=== PATIENT | female | born 1965 | race Asian ===

== ENCOUNTER 2019-05-01 00:17 | Emergency (ER) | payer OTHER ==
[2019-05-01 00:32] VITALS: BP 147/83
== END 2019-05-01 02:33 | disposition left against medical advice (07) ==
LOC: ED 00:17
DX: Z53.21 Procedure and treatment not carried out due to patient leaving prior to being seen by health care provider (principal)

== ENCOUNTER 2019-05-03 00:14 | Emergency (ER) | payer OTHER ==
--- NOTE | 2019-05-03 01:04 | ED Physician Documentation ---
PD HPI LOWER EXT INJURY - Stated complaint Stated Complaint: L ANKLE PX - Chief complaint Chief Complaint: Ext Problem - History obtained from History obtained from: Patient - History of Present Illness PD HPI LOW EXT INJURY LOCATION: Left, Ankle Where injury occurred: Work Timing - onset: How many months ago (8) Timing - duration: Months (8) Timing - details: Still present Worsened by: Other (Weight bearing.) Associated symptoms: Swelling Recently seen: Clinic (W) - Additional information Additional information: The patient is a 54-year-old female who presents with pain and swelling of her left ankle. She has a history of left ankle sprain that occurred 8 months ago. X-rays at that time, and again as recently as 2 weeks ago, were negative for fracture. She continues to have pain and swelling of her ankle 8 months after the injury. Her employer at [facility] [employer] advised her to come to the emergency department to file an L&I claim. Her pain is worse with weightbearing. She denies any recurrent injury after the ankle sprain 8 months ago. 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 She has been using compression stockings and compression wrap. Review of Systems Constitutional: denies: Fever Respiratory: denies: Dyspnea, Cough Skin: denies: Rash Musculoskeletal: reports: Joint pain (Left ankle.), Joint swelling (Left ankle.) Neurologic: denies: Focal weakness, Numbness PD PAST MEDICAL HISTORY - Past Medical History Past Medical History: Yes Respiratory: Asthma Endocrine/Autoimmune: HyPOthyroidism - Past Surgical History Past Surgical History: Yes /[employer]: section, Dilation and currettage - Present Medications Home Medications: Ambulatory Orders Medication Instructions Recorded Confirmed Albuterol [Ventolin Hfa] 2 puffs INH Q4H PRN 01/07/14 05/03/19 Levothyroxine [Synthroid] 50 mcg ORAL DAILY 06/04/16 05/03/19 - Allergies Allergies/Adverse Reactions: Allergies Allergy/AdvReac Type Severity Reaction Status Date / Time gabapentin Allergy Intermediate Emesis Verified 05/03/19 00:20 ethinyl estradiol AdvReac Severe Headache Verified 05/03/19 00:20 [From Ortho Evra] norelgestromin AdvReac Severe Headache Verified 05/03/19 00:20 [From Ortho Evra] neomycin [Neomycin] AdvReac Intermediate skin Verified 05/03/19 00:20 redness - Social History Does the pt smoke?: No Smoking Status: Never smoker Does the pt drink ETOH?: No Does the pt have substance abuse?: No - Immunizations Immunizations are current?: Yes - POLST Patient has POLST: No PD ED PE NORMAL - Vitals Vital signs reviewed: Yes (Borderline hypertension initially.) - General General: Alert and oriented X 3, Well developed/nourished - HEENT HEENT: Atraumatic - Respiratory Respiratory: No respiratory distress - Derm Derm: No rash - Extremities Extremities: No calf tenderness / cord, Other (There is soft tissue swelling at both the medial and lateral aspect of the left ankle, with associated tenderness to palpation more medially than left early. There is decreased range of motion. There is no warmth or erythema. Distal neurovascular is intact.) - Neuro Neuro: Alert and oriented X 3, No motor deficit, No sensory deficit Results - Vitals Vitals: Vital Signs - 24 hr 05/03/19 05/03/19 00:15 01:15 Temperature 36.4 C L Heart Rate 70 74 Respiratory 15 16 Rate Blood Pressure 137/92 H 136/74 H O2 Saturation 98 99 Oxygen O2 Source Room air PD MEDICAL DECISION MAKING - ED course Complexity details: considered differential, d/w patient, other (L&I form was completed.) ED course: The patient's presentation is most consistent with persistent pain and swelling of her left ankle 8 months after an ankle sprain. X-rays of the ankle as recently as 2 weeks ago revealed no evidence of osseous abnormality. I do not think repeating the x-rays at this time would be of clinical benefit. There is no evidence to suggest a septic joint. I discussed with the patient symptomatic care, outpatient follow-up, as well as potentially worrisome signs or symptoms that should prompt reevaluation in the emergency department. An L&I form was completed. Departure - Departure Disposition: 01 Home, Self Care Clinical Impression: Pain and swelling of left ankle Left ankle sprain Qualifiers: Encounter type: sequela Involved ligament of ankle: unspecified ligament Qualified Code(s): S93.402S - Sprain of unspecified ligament of left ankle, sequela Condition: Stable Instructions: ED Sprain Ankle Follow-Up: BRANDYN CABRAL [Primary Care Provider] - [facility] [Provider Group] Comments: Keep your left leg elevated as much of the time as possible. You can use Tylenol or ibuprofen as needed for discomfort. Follow-up with your primary physician or with orthopedics within 2 weeks. Call to schedule an appointment. Return to the emergency department if you develop increasing swelling, pain, or otherwise worsening symptoms. Discharge Date/Time: 05/03/19 01:15
[2019-05-03 01:16] VITALS: BP 136/74
== END 2019-05-03 01:15 | disposition home or self-care (01) ==
LOC: ED 00:14
DX: S93.402A Sprain of unspecified ligament of left ankle, initial encounter (principal); X50.1XXA Overexertion from prolonged static or awkward postures, initial encounter; Y93.F9 Activity, other caregiving; Y92.239 Unspecified place in hospital as the place of occurrence of the external cause; Y99.0 Civilian activity done for income or pay
CPT/HCPCS: 99282; 99283

== ENCOUNTER 2020-05-30 12:43 | Outpatient (CLI) | payer OTHER ==
--- NOTE | 2020-05-30 17:31 | MRI Report ---
PROCEDURE: Ankle LT W/O INDICATIONS: LOCALIZED EDEMA TECHNIQUE: Noncontrast Magnetic Resonance Imaging (MRI) of the ankle/hindfoot was performed utilizing the follow ing sequences on a 3.0 Patience Siemens MRI: sagittal T1 spin echo, sagittal STIR, axial PD fast spin ec ho, axial T2 fast spin echo with fat saturation, coronal T2 spin echo with fat saturation, and PD fas t spin echo with fat saturation. COMPARISON: 8: Radiographs dated 04/20/2019 and 09/01/2018. FINDINGS: Image quality: Diagnostic. Bones and joints: No acute fracture, dislocation, or suspicious osseous lesion of the midfoot or hindfoot bones is pres ent. Osteoarthritic changes are noted in tibiotalar joint, subtalar joint, talonavicular joint and ca lcaneocuboid joints. Small to moderate amount of tibiotalar joint and subtalar joint effusion is seen extending to posterior recess of subtalar joint. Mild edema involving the lateral periphery of media l malleolus adjacent to medial portion of talus is seen suggestive of contusion. Subcortical cyst for mation involving medial portion of lateral malleolus is also seen. The ankle mortise is well-maintain ed. No osteochondral defects are evident involving the tibial plafond toward the talar dome. No signi ficant degenerative changes of the midfoot or hindfoot joints are present. Medial structures: There is medial ankle soft tissue swelling. Mildly thickened deep and superficial portions of deltoid ligament is seen suggestive of ligament sprain/low-grade partial thickness tear. Sprain ligament com plex is grossly intact. The posterior tibialis, flexor digitorum longus, and flexor hallucis longus tendons are intact. Small to moderate amount of fluid is seen distending the flexor tendon sheaths suggestive of low-grade ten osynovitis. The posterior tibial neurovascular bundle appears normal within the tarsal tunnel, withou t extrinsic mass effect. Lateral structures: The anterior and posterior distal tibiofibular ligaments are also intact. The anterior talofibular li gament, posterior talofibular ligament, and calcaneofibular ligament are intact. The peroneus longus and peroneus brevis tendons are intact and otherwise unremarkable. The sinus tarsi demonstrates normal fatty signal. Anterior structures: The tibialis anterior, extensor hallucis longus, and extensor digitorum longus tendons appear intact. Posterior and plantar structures: The Achilles tendon is intact. The medial and lateral bands of the plantar fascia are within normal l imits. IMPRESSION: 1. Osteoarthritic changes in ankle and hindfoot joints. Small amount of joint effusion. Soft tissue s welling over medial malleolus. No acute fracture or dislocation. Suggestion of mild bony contusion in volving medial and lateral malleoli as above. 2. Low-grade tenosynovitis involving flexor tendons. No evidence of tendon rupture. Extensor and maryann neus tendons are intact. Achilles tendon is intact. 3. Sprain/low-grade partial thickness tear involving deltoid ligament. Sprain ligament complex is int act. Lateral ankle ligaments are grossly intact. Reviewed by: Dean Gaitan MD on 05/30/2020 5:30 PM PDT Approved by: Dean Gaitan MD on 05/30/2020 5:30 PM PDT Station ID: [id number]
== END 2020-05-30 12:44 | disposition home or self-care (01) ==
LOC: DI 12:43
PROVIDERS: ATTEND Family Medicine
DX: S93.422A Sprain of deltoid ligament of left ankle, initial encounter (principal); M65.9 Synovitis and tenosynovitis, unspecified; M19.072 Primary osteoarthritis, left ankle and foot; M79.89 Other specified soft tissue disorders

== ENCOUNTER 2021-03-20 08:50 | Outpatient (CLI) | payer OTHER ==
--- NOTE | 2021-03-21 12:16 | Mammography Report ---
BILATERAL DIGITAL SCREENING MAMMOGRAM 3D/2D: 03/20/2021 CLINICAL: Routine screening. Comparison is made to exams dated: 09/01/2018 mammogram, 06/23/2017 mammogram, 10/11/2015 mammogram, a nd 08/15/2014 mammogram - [facility]. There are scattered fibroglandular elements in b oth breasts. No significant masses, calcifications, or other findings are seen in either breast. There has been no significant interval change. IMPRESSION: NEGATIVE There is no mammographic evidence of malignancy. A 1 year screening mammogram is recommended. This exam was interpreted at Station ID: [id number]. NOTE: For mammograms, a report in lay terms will be sent to the patient. Approximately 15% of breast malignancies will not be visualized mammographically. In the management of a palpable breast mass, a negative mammogram must not discourage biopsy of a clinically suspicious lesion. Electronically Signed By: River Lopez M.D. ddp/penrad:03/20/2021 09:38:11 ACR BI-RADS Category 1: Negative 3341F PARENCHYMAL PATTERN: (A) - The breast(s) demonstrate(s) scattered fibroglandular densities. BI-RADS CATEGORY: (1) - 1 RECOMMENDATION: (ANNUAL) - Recommend routine annual screening mammography. [id number] 1 year screening LATERALITY: (B)
== END 2021-03-20 08:51 | disposition home or self-care (01) ==
LOC: DI 08:50
DX: Z12.31 Encounter for screening mammogram for malignant neoplasm of breast (principal)

== ENCOUNTER 2021-09-24 13:22 | Outpatient (CLI) | payer OTHER ==
--- NOTE | 2021-09-24 16:09 | MRI Report ---
PROCEDURE: Lumbar Spine W/O INDICATIONS: RADICULOPATHY, INFLAMMATORY POLYARTHROPATHY TECHNIQUE: Noncontrast sagittal T1 spin echo and T2 fast echo, sagittal STIR, axial T1 and T2 fast spin echo thr ough the lumbar spine. In cases with scoliosis, additional coronal T2 fast spin echo may be performe d. COMPARISON: None. FINDINGS: Image quality: Excellent. Alignment and Curvature: Trace degenerative anterolisthesis of L4 on L5. The other vertebral bodies a re normally aligned. Bone Marrow: Marrow is of normal overall signal. No acute vertebral body compression fractures. Spinal Cord: Conus medullaris terminates at the L1-L2 level. Visualized cord demonstrates normal si gnal and size. Paraspinous Soft Tissues: No paravertebral masses. Incidental note is made of gallstones in the gall bladder. T11-T12: No canal stenosis or foraminal stenosis. T12-L1: No canal stenosis or foraminal stenosis. L1-L2: No canal stenosis or foraminal stenosis. L2-L3: No canal stenosis or foraminal stenosis. L3-L4: Minimal disc bulge. Mild facet hypertrophy. No canal stenosis or foraminal stenosis. L4-L5: Moderately prominent bilateral facet hypertrophy. Trace anterolisthesis of L4 on L5. No lucita l stenosis or significant foraminal stenosis. L5-S1: Bilateral facet hypertrophy. No canal stenosis or foraminal stenosis. IMPRESSION: 1. Multilevel facet arthropathy. 2. No canal stenosis or foraminal stenosis. Reviewed by: Deejay Márquez MD on 09/24/2021 4:08 PM PST Approved by: Deejay Márquez MD on 09/24/2021 4:08 PM PST Station ID: [id number]
== END 2021-09-24 13:23 | disposition home or self-care (01) ==
LOC: DI 13:22
PROVIDERS: ATTEND Family Medicine
DX: M47.816 Spondylosis without myelopathy or radiculopathy, lumbar region (principal); M47.817 Spondylosis without myelopathy or radiculopathy, lumbosacral region

== ENCOUNTER 2021-11-02 04:17 | Emergency (ER) | payer OTHER ==
[2021-11-02 04:40] VITALS: BP 141/69
[2021-11-02] MEDS ORDERED: DEXAMETHASONE 10 MG/ML VIAL PO STA (05:11)
[2021-11-02] MEDS ORDERED: CHERRY SYRUP 10 ML UDC PO ONE (05:11)
--- NOTE | 2021-11-02 05:13 | ED Physician Documentation ---
History of Present Illness - Stated complaint Stated Complaint: MED REACTION, HIGH HR, NAUSEA - Chief complaint Chief Complaint: General - History obtained from History obtained from: Patient - History of Present Illness Timing: Today - Additonal information Additional information: 56 y/o female with a history of asthma has gone into her primary care doctor and she received a prescription for some prednisone and albuterol and she has taken prednisone previously and had some itching associated with it. Nothing as bad as what she has had this evening. She has now taken a single dose of the prednisone and she has developed redness to her skin and itching. She has not taken a second dose. She feels that her lung function is improved. She is not coughing up phlegm and she denies any fever. She states she knew the prednisone was a problem but not this bad. She states that dexamethasone has worked in the past. Review of Systems Constitutional: denies: Fever Eyes: denies: Decreased vision Ears: denies: Ear pain Nose: reports: Congestion. denies: Rhinorrhea / runny nose Throat: denies: Sore throat Cardiac: denies: Chest pain / pressure, Palpitations Respiratory: reports: Dyspnea, Cough, Wheezing GI: denies: Abdominal Pain, Nausea, Vomiting : denies: Dysuria, Frequency PD PAST MEDICAL HISTORY - Past Medical History Respiratory: Asthma Endocrine/Autoimmune: HyPOthyroidism - Past Surgical History Past Surgical History: Yes /[employer]: section, Dilation and currettage - Present Medications Home Medications: Ambulatory Orders Medication Instructions Recorded Confirmed Albuterol [Ventolin Hfa] 2 puffs INH Q4H PRN 01/07/14 11/02/21 Levothyroxine [Synthroid] 50 mcg ORAL DAILY 06/04/16 11/02/21 dexAMETHasone [Decadron] 4 mg PO DAILY #5 tablet 11/02/21 predniSONE [Deltasone] 20 mg PO [id number] 11/02/21 11/02/21 - Allergies Allergies/Adverse Reactions: Allergies Allergy/AdvReac Type Severity Reaction Status Date / Time gabapentin Allergy Intermediate Emesis Verified 05/03/19 00:20 ethinyl estradiol AdvReac Severe Headache Verified 05/03/19 00:20 [From Ortho Evra] norelgestromin AdvReac Severe Headache Verified 05/03/19 00:20 [From Ortho Evra] neomycin [Neomycin] AdvReac Intermediate skin Verified 05/03/19 00:20 redness - Social History Does the pt smoke?: No Smoking Status: Never smoker Does the pt drink ETOH?: No Does the pt have substance abuse?: No - Immunizations Immunizations are current?: Yes - POLST Patient has POLST: No PD ED PE NORMAL - Vitals Vital signs reviewed: Yes (tachy and hypertensive ) - General General: Alert and oriented X 3, No acute distress, Well developed/nourished - HEENT HEENT: Atraumatic, PERRL - Neck Neck: Supple, no meningeal sign, No bony TTP - Cardiac Cardiac: RRR, No murmur - Respiratory Respiratory: No respiratory distress, Clear bilaterally - Abdomen Abdomen: Soft, Non tender - Back Back: No CVA TTP, No spinal TTP - Derm Derm: Warm and dry, Other (There is erythema to the skin that is confluent and appears excoriated. ) - Extremities Extremities: No deformity, No edema - Neuro Neuro: Alert and oriented X 3, belly packer 2-12 intact, No motor deficit, No sensory deficit, Normal speech Eye Opening: Spontaneous Motor: Obeys Commands Verbal: Oriented GCS Score: 15 - Psych Psych: Normal mood, Normal affect Results - Vitals Vitals: Vital Signs - 24 hr 11/02/21 11/02/21 04:32 04:44 Temperature 36.9 C Heart Rate 111 H Respiratory 20 Rate Blood Pressure 141/69 H O2 Saturation 99 Oxygen O2 Source Room air PD MEDICAL DECISION MAKING - ED course Complexity details: reviewed old records, reviewed results, re-evaluated patient, considered differential, d/w patient, d/w family ED course: 56-year-old female with a history of asthma has a reaction to prednisone that she has known about previously and she has taken a dose now and this seems that she has had a worse reaction than previously. She states the dexamethasone has worked well for her previously and she is given a 10 mg dose we will place her on 4 mg a day for 5 days. Departure - Departure Disposition: 01 Home, Self Care Clinical Impression: Allergic reaction Qualifiers: Encounter type: initial encounter Qualified Code(s): T78.40XA - Allergy, unspecified, initial encounter Condition: Stable Instructions: ED Drug React Allergic Follow-Up: GUSTAVO VALENZUELA DO [Primary Care Provider] - Prescriptions: dexAMETHasone [Decadron] 4 mg PO DAILY #5 tablet Comments: Musa, today it looks like the itching and redness to the skin are a reaction to the prednisone. We have given you dexamthasone and my recommendation is to discontinue the prednisone and substitute the dexamethasone. Discharge Date/Time: 11/02/21 05:24
== END 2021-11-02 05:24 | disposition home or self-care (01) ==
LOC: ED 04:17
DX: L29.9 Pruritus, unspecified (principal); L53.9 Erythematous condition, unspecified; T38.0X5A Adverse effect of glucocorticoids and synthetic analogues, initial encounter; J45.909 Unspecified asthma, uncomplicated
CPT/HCPCS: 99282; A9270

== ENCOUNTER 2022-05-18 13:15 | Outpatient (CLI) | payer OTHER ==
[2022-05-18] MEDS ORDERED: ALBUTEROL 1 PUFF INH ONE (17:32)
[2022-05-18] MEDS ORDERED: ALBUTEROL 1 PUFF INH STA (17:32)
== END 2022-05-18 13:16 | disposition home or self-care (01) ==
LOC: RT 13:15
PROVIDERS: ATTEND Physician Assistant
DX: R06.02 Shortness of breath (principal)
CPT/HCPCS: 94060; 94729

== ENCOUNTER 2022-08-09 08:00 | Outpatient (CLI) | payer OTHER ==
--- NOTE | 2022-08-09 20:26 | XRAY Report ---
PROCEDURE: Ankle 3 View LT INDICATIONS: ANKLE PAIN LEFT TECHNIQUE: 3 views of the ankle were acquired. COMPARISON: 07/05/2022 FINDINGS: Bones: No fractures or dislocations. There is narrowing of the ankle mortise medially. The visualize d hindfoot demonstrates pes planus which is incompletely evaluated. No suspicious bony lesions. Soft tissues: There is a small tibiotalar joint effusion. Achilles tendon appears normal. IMPRESSION: 1. No fracture or dislocation. 2. Narrowing of the ankle mortise medially. 3. Pes planus demonstrated in the hindfoot. Reviewed by: River Rodriguez MD on 08/09/2022 8:25 PM PDT Approved by: River Rodriguez MD on 08/09/2022 8:25 PM PDT Station ID: [id number]
== END 2022-08-09 23:59 | disposition home or self-care (01) ==
LOC: DI.WOS 08:00
PROVIDERS: ATTEND Physician Assistant
DX: M25.572 Pain in left ankle and joints of left foot (principal); M21.42 Flat foot [pes planus] (acquired), left foot